=== PATIENT | female | born 1995 | race Caucasian/White ===

== ENCOUNTER → 2017-10-04 | Outpatient (CLI) | payer OTHER ==
--- NOTE | 2017-10-04 16:24 | Diagnostic Imaging Report ---
PROCEDURE: US OB SINGLE FETUS <14 WKS. TECHNIQUE: Multiple real-time grayscale images were obtained over the gravid uterus in various projections. INDICATION: Size and dates. FINDINGS: There is a single living intrauterine . Biometry correlates with a gestational age of 9 weeks 0 days. Heart rate is 179 beats per minute and regular. Both ovaries are normal in appearance. There are no adnexal masses. IMPRESSION: Single living intrauterine with a sonographically estimated gestational age of 9 weeks 0 days and estimated date of confinement of May 09, 2018. Dictated by: Dictated on workstation # [id number]
== END ==
LOC: RAD 13:39
PROVIDERS: ATTEND Family Medicine
DX: Z34.91 Encounter for supervision of normal pregnancy, unspecified, first trimester (principal); Z3A.09 9 weeks gestation of pregnancy
CPT/HCPCS: 76801

== ENCOUNTER → 2017-12-15 | Outpatient (CLI) | payer OTHER, MEDICAID ==
--- NOTE | 2017-12-15 16:33 | Diagnostic Imaging Report ---
EXAM: OB ULTRASOUND COMPLETE. DATE: December 15, 2017. COMPARISON: October 04, 2017. INDICATION: 22-year-old female, survey. FINDINGS: Multiple grayscale sonographic images were obtained of the gravid uterus. Overview: Within the uterus there is a single living gestation in cephalic position. There is positive movement and heart motion. heart rate was identified at 149 beats per minute. The amniotic fluid volume is subjectively normal. The placenta is anterior and without previa. The cervical length is 5.1 cm. growth parameters are summarized in detail below. anatomic survey: There is no ventriculomegaly (the lateral ventricle measures < 8 mm) the cerebellum, cavum septum pellucidum, falx, and cisterna magna are identified. Longitudinal images of the spine appear unremarkable. There is visualization of the stomach, kidneys and urinary bladder. The cardiac apex and stomach are on the same side of midline. There is a normal four-chamber view of the heart. There is a three-vessel cord with an unremarkable insertion into the abdominal wall. 4 extremities are seen. The upper lip is not well demonstrated. The maternal adnexa are not imaged. IMPRESSION: 1. Single living intrauterine . Recommend correlation with earlier ultrasound measurements for estimated age. Estimated weight on this exam is 272 g. 2. Unremarkable anatomic survey. Biometrical measurements are as follows: Biparietal 4.2 cm, age 19 weeks 0 days. Head circumference 16.14 cm, age 19 weeks 0 days. Abdominal circumference 13.59 cm, age 19 weeks 1 days. Femur length 2.96 cm, age 19 weeks 1 days. Sonographic estimate age: 19 weeks 1 days. Sonographic estimated date of delivery: 05/10/18. Estimated Weight: 272 gm (+/- 40 gm). LMP percentile: 33%. heart rate: 149 beats per minute. number: 1 of 1. Dictated by: Dictated on workstation # [id number]
== END ==
LOC: RAD 14:45
PROVIDERS: ATTEND Family Medicine
DX: Z36.89 Encounter for other specified antenatal screening (principal); Z3A.19 19 weeks gestation of pregnancy
CPT/HCPCS: 76805

== ENCOUNTER 2018-05-09 18:33 | Inpatient (IN) | payer OTHER, MEDICAID ==
[~2018-05-09] VITALS: Ht 160 cm; Wt 79.4 kg
[2018-05-09 18:30] VITALS: BP 126/72
[2018-05-09] MEDS ORDERED: D5 LR IV SOLUTION 1,000 ML IV ONE (19:25)
[2018-05-09 19:30] LABS: BASOPHILS % (AUTO) 0 % (0-10); EOSINOPHILS # (AUTO) 0.1 10^3/uL (0.0-0.3); EOSINOPHILS % (AUTO) 1 % (0-10); HEMATOCRIT 34 % (35-52); HEMOGLOBIN 11.5 G/DL (11.5-16.0); LYMPHOCYTES % (AUTO) 14 % (12-44); MEAN CORPUSCULAR HEMOGLOBIN 32 PG (25-34); MEAN CORPUSCULAR HGB CONC 34 G/DL (32-36); MEAN CORPUSCULAR VOLUME 93 FL (80-99); MEAN PLATELET VOLUME 11.7 FL (7.4-10.4); MONOCYTES # (AUTO) 1.3 X 10^3 (0.0-1.0); MONOCYTES % (AUTO) 9 % (0-12); NEUTROPHILS % (AUTO) 77 % (42-75); PLATELET COUNT 297 10^3/uL (130-400); RED BLOOD COUNT 3.65 10^6/uL (4.35-5.85); RED CELL DISTRIBUTION WIDTH 14.9 % (10.0-14.5); WHITE BLOOD COUNT 14.4 10^3/uL (4.3-11.0)
[2018-05-09] MEDS: D5 LR IV SOLUTION 1,000 ML IV SCH (19:30)
[2018-05-09 19:56] LABS: BAND NEUTROPHILS 0 %; BASOPHILS % (MANUAL) 0 %; EOSINOPHILS % (MANUAL) 1 %; LYMPHOCYTES % (MANUAL) 10 %; MONOCYTES % (MANUAL) 8 %; NEUTROPHILS % (MANUAL) 81 %; RBC MORPH NORMAL
[2018-05-09 20:20] VITALS: BP 128/78
--- NOTE | 2018-05-09 20:47 | History & Physical-OB ---
OB - Chief Complaint & HPI Date/Time Date of Admission: Date of Admission: May 09, 2018 at 18:33 Date seen by a Provider: May 09, 2018 Time Seen by a Provider: 20:40 Chief Complaint/History OB-Reason for Admission/Chief: Induction of Labor Hx : 1 Hx Para: 0 Expected Date of Delivery: May 09, 2018 Gestational Age in Weeks: 40 Gestational Age in Days: 0 Indication for : malpresentation (determined once on the floor when induction was to begin.) Admission Nurse Assessment Rev: Yes History of Labs GBS positive Allergies and Home Medications Allergies Coded Allergies: No Known Drug Allergies (Unverified , 12/15/12) Patient Home Medication List Home Medication List Reviewed: Yes OB - History Hx of Present Care: Yes Ultrasounds: Normal mid trimester US Obstetrical Complications: None Medical Complications: None Patient Past Medical History no chronic medical problems Immunizations Tetanus Booster (TDap): Less than 5yrs OB - Admission Exam Physical Exam Vitals: Vital Signs 05/09/18 18:30 Temp 98.8 Pulse 116 Resp 18 B/P (MAP) 126/72 (90) O2 Delivery Room Air HEENT: Moist Membranes Heart: Rhythm Normal Lungs: Clear Abdomen: Gravid Cervical Dilatation: 1cm Effacement: 50% Station: Ballotable Membranes: Intact Heart Rate: 130's Accelerations: Accelerations Present Contractions on Admission: >10 Minutes Apart Intensity: Mild Labs Laboratory Tests Test 05/09/18 19:05 Range/Units White Blood Count 14.4 H 4.3-11.0 10^3/uL Red Blood Count 3.65 L 4.35-5.85 10^6/uL Hemoglobin 11.5 11.5-16.0 G/DL Hematocrit 34 L 35-52 % Mean Corpuscular Volume 93 80-99 FL Mean Corpuscular Hemoglobin 32 25-34 PG Mean Corpuscular Hemoglobin Concent 34 32-36 G/DL Red Cell Distribution Width 14.9 H 10.0-14.5 % Platelet Count 297 130-400 10^3/uL Mean Platelet Volume 11.7 H 7.4-10.4 FL Neutrophils (%) (Auto) 77 H 42-75 % Lymphocytes (%) (Auto) 14 12-44 % Monocytes (%) (Auto) 9 0-12 % Eosinophils (%) (Auto) 1 0-10 % Basophils (%) (Auto) 0 0-10 % Neutrophils # (Auto) 11.0 H 1.8-7.8 X 10^3 Lymphocytes # (Auto) 2.0 1.0-4.0 X 10^3 Monocytes # (Auto) 1.3 H 0.0-1.0 X 10^3 Eosinophils # (Auto) 0.1 0.0-0.3 10^3/uL Basophils # (Auto) 0.0 0.0-0.1 10^3/uL Neutrophils % (Manual) 81 % Lymphocytes % (Manual) 10 % Monocytes % (Manual) 8 % Eosinophils % (Manual) 1 % Basophils % (Manual) 0 % Band Neutrophils 0 % Blood Morphology Comment NORMAL OB - Assessment/Plan/Diagnosis Assessment Assessment: induction of labor (but now breech presentation noted. ) Admission Dx IUP at term 40 weeks. Breech presentation (noted at time of induction) Admission Status: Inpatient Order (span 2 midnights) Reason for Inpatient Admission: Plan is for LTCS primary in the am Plan Plan: Section (and Dr Avila notified at 2039 on ) Other Plan NPO after midnight consent for CS for am DAVID YAO MD May 09, 2018 20:47
[2018-05-10] VITALS (8 sets, daily range): BP systolic 115–136; BP diastolic 65–89
[2018-05-10] MEDS ORDERED: PREN-142 PO (01:18)
[2018-05-10] MEDS: CATHETER FLUSH 10 ML SYR IV SCH ×3 (02:41→23:58)
[2018-05-10] MEDS ORDERED: ceFAZolin 1,000 MG/10 ML (ANCEF) VIAL ONE (05:15)
[2018-05-10] MEDS ORDERED: NS (IVPB) 50 ML ONE (05:15)
[2018-05-10] MEDS ORDERED: METOCLOPRAMIDE INJ 10 MG/2 ML (REGLAN) ONE (05:16)
[2018-05-10] MEDS ORDERED: FAMOTIDINE 20MG/2ML IV (PEPCID) ONE (05:16)
[2018-05-10] MEDS ORDERED: CITRIC ACID/SOB CIT (BICITRA) 30 ML UDC ONE (05:16)
[2018-05-10] MEDS ORDERED: FAMOTIDINE 20MG/2ML IV (PEPCID) IV ONE (06:15)
[2018-05-10] MEDS ORDERED: CITRIC ACID/SOB CIT (BICITRA) 30 ML UDC PO ONE (06:15)
[2018-05-10] MEDS ORDERED: METOCLOPRAMIDE INJ 10 MG/2 ML (REGLAN) IV ONE (06:15)
[2018-05-10] MEDS ORDERED: ceFAZolin INJECTION 1,000 MG in NS (IVPB) 50 ML IV NR (06:15)
[2018-05-10] MEDS: LACTATED RINGERS 1,000 ML IV PRN ×2 (06:24→06:25)
[2018-05-10] MEDS ORDERED: LACTATED RINGERS 1,000 ML IV PRN (06:53)
[2018-05-10] MEDS ORDERED: fentaNYL INJECTION 100 MCG/2 ML AMP ONE (07:00)
[2018-05-10] MEDS ORDERED: OXYTOCIN/NORMAL SALINE 1,000 ML IV ONE (07:00)
[2018-05-10] MEDS ORDERED: OXYTOCIN/NORMAL SALINE 500 ML IV SCH (07:07)
--- NOTE | 2018-05-10 07:07 | Progress Note-Pre Operative ---
Pre-Operative Progress Note H&P Reviewed The H&P was reviewed, patient examined and no changes noted. Date Seen by Provider: May 10, 2018 Time Seen by Provider: 07:00 Date H&P Reviewed: May 10, 2018 Time H&P Reviewed: 07:00 Pre-Operative Diagnosis: Breech presentation KAYODE KENDRICK DO May 10, 2018 7:07 am
--- NOTE | 2018-05-10 07:11 | Discharge Inst-Women's Service ---
Discharge Inst-Women's Serv Depart Medication/Instructions New, Converted or Re-Newed RX: RX on Chart Consults/Follow Up Additional Follow Up: Yes Orders/Referrals Dr. Avila in 7-10 days, Dr. Lewis in 6 weeks Activity Activity: Activity as Tolerated Driving Instructions: No Driving for 1 Week NO SMOKING: NO SMOKING Nothing Inside Vagina: No Douching, No [place], No Tampons Diet Discharge Diet: No Restrictions Symptoms to Report to : Bleeding Excessive, Pain Increased, Fever Over 101 Degrees F, Vaginal Bleeding Increase, Questions/Concerns For Any Problems or Questions: Contact Your Physician Skin/Wound Care Infection Signs and Symptoms: Increased Redness, Foul Odor of Wound, Increased Drainage, Skin Itchy or Has a Rash, Increased Swelling, Temperature Above 101 F Operative Area Clean and Dry: Keep Incision Clean/Dry Stitches/Andreas/Dermabond: Dermabond, Care of Stitches Bathing Instructions: KAYODE Ocasio DO May 10, 2018 7:11 am
[2018-05-10] MEDS ORDERED: ACHD5005 PO (07:13)
[2018-05-10] MEDS ORDERED: IBUP-844 PO (07:13)
[2018-05-10] MEDS ORDERED: DOCU100C37 PO (07:13)
[2018-05-10] MEDS ORDERED: MEASLES,MUMPS,RUBELLA 1 EA INJ SC SCH (07:15)
[2018-05-10] MEDS ORDERED: TETANUS,DIPTH,PERTUSS P/F (BOOSTRIX) 0.5 ML VIAL IM SCH (07:15)
[2018-05-10] MEDS ORDERED: ONDANSETRON 4 MG/2 ML (SDV) Z0FRAN IVP PRN (07:15)
[2018-05-10] MEDS ORDERED: HYDROmorphone 2 MG/ML VIAL (DILAUDID) IV PRN (07:15)
[2018-05-10] MEDS ORDERED: PHENYLEPHRINE 100 MCG/ML 10 ML (ANESTHESIA) SYR ONE (07:18)
[2018-05-10] MEDS ORDERED: BUPIVACAINE 0.5% 30 ML (SENSORCAINE) VIAL ONE (08:01)
[2018-05-10] MEDS ORDERED: LIDOCAINE PF 2% 5 ML (XYLOCAINE) VIAL ONE (08:01)
[2018-05-10] MEDS ORDERED: BUPIVACAINE SPINAL 0.75% (SENSORCAINE) 2 ML AMP ONE (08:02)
[2018-05-10] MEDS: KETOROLAC 30 MG/ML VIAL IVP SCH ×3 (11:31→23:58)
[2018-05-10] MEDS: D5 LR IV SOLUTION 1,000 ML IV SCH (11:33)
--- NOTE | 2018-05-10 12:56 | OPERATIVE REPORT ---
DATE OF SERVICE: PREOPERATIVE DIAGNOSES: 1. A 22-year-old G1, P0 at 40 weeks and 1 day gestation. 2. Breech presentation. POSTOPERATIVE DIAGNOSES: 1. A 22-year-old G1, P0 at 40 weeks and 1 day gestation. 2. Breech presentation. PROCEDURE: Primary low transverse section. SURGEON: Johnnie Kendrick DO CONTRACTS ADVISOR: Dr. Jay Lewis. ANESTHESIA: Spinal. ESTIMATED BLOOD LOSS: 500 mL. URINE OUTPUT: 125 mL clear at the end of procedure. FLUIDS: 1200 mL lactated Ringer's solution. FINDINGS: A live female infant, weighing 7 pounds 7 ounces, Apgars of 8 and 9. Grossly normal appearing uterus, bilateral fallopian tubes and ovaries. INDICATIONS FOR PROCEDURE: This 22-year-old female is a patient admitted by Dr. Lewis yesterday for induction of labor at 40 weeks and found to be in the breech presentation. I was consulted last evening. She had just eaten and therefore she had to be n.p.o. overnight due to the fact that she was not in labor and this was not an emergency. This morning I went and reevaluated and found on ultrasound that the baby continued to be in the breech presentation, which was a isabella breech. I discussed with the patient the risk of vaginal breech delivery and why we recommend for breech presentation. She seemed to understand this and all of her questions were answered pertaining to the indication. I then discussed with her the risks of the procedure including risk of bleeding, infection, damage to surrounding structures including, but not limited to bowel, bladder, ureter, kidneys, postoperative expectations, possible need for repeat surgery or follow up procedures as well as recovery time frame, risk from anesthesia and even and also possible risk for blood transfusion. After everything was discussed with the patient, consent was obtained in the preoperative area and all of her questions were answered with the family present and the patient was taken to the operating room. OPERATIVE REPORT IN DETAIL: Once in the operating room, spinal analgesia was found to be adequate. She was placed in the supine position with a leftward tilt, prepped and draped in normal sterile fashion. A Pfannenstiel skin incision was then made with a knife after anesthesia was tested and timeout was performed. That incision was then taken down to the underlying fascia using Bovie cautery. The fascial incision extended laterally using Bovie cautery. Superior aspect of the fascial incision was then grasped with Nichole clamps, tented up and dissected off the underlying rectus muscle. The inferior aspect of the fascial incision was then grasped with Nichole clamps, tented up and dissected off the underlying rectus muscles. The rectus muscles were then dissected down the midline using Albarran scissors, which expose the peritoneum, which I entered bluntly and extended using blunt extension. The Giovanni ring retractor was then placed in the peritoneal incision, which offered excellent lateral sidewall retraction. I then identified the lower uterine segment found to be thinned out. I make an incision to the vesicouterine peritoneum and bluntly dissected this off the lower uterine segment, creating a bladder flap. I then proceeded until membranes were visualized, which fornix and the uterine incision laterally and superiorly using bandage scissors. Infant is found in the isabella breech presentation and clear fluid was noted at the time of rupture. With gentle fundal pressure, the is delivered via buttocks through the incision where the legs were then delivered to follow. The arms were then delivered after the infant is positioned face down by sweeping the arms across the chest. I then elevate the infant's body and with gentle flexion, I am able to deliver the 's head through the incision. The nares and oropharynx were then bulb suctioned. The cord was doubly clamped and cut and was taken off the operative field by Dr. Lewis for further attendance. Cord blood was collected. Three-vessel cord with intact placenta was delivered spontaneously thereafter. IV Pitocin was initiated to facilitate uterine contraction. Uterine fundus confirmed with bimanual massage. The uterus was then exteriorized and cleared of all endometrial clots and debris. I then closed the uterine incision using 0 Vicryl suture in running locked fashion. Second layer of imbricating 0 Monocryl was placed. Excellent hemostasis was noted after doing this. I then copiously irrigated the pelvis using normal saline. Once again, there was no active bleeding noted from any of my dissection planes. I placed Interceed antiadhesive over my low transverse incision to the vesicouterine peritoneum using 3-0 Vicryl suture in a running fashion. The rectus muscle was reapproximated using 3-0 Vicryl suture in an interrupted fashion. The fascia was reapproximated using 0 Vicryl suture in running fashion. The subcutaneous tissue was reapproximated using 3-0 plain in interrupted subcutaneous stitch and the skin reapproximated using 4-0 Monocryl in a running subcuticular. Dermabond was applied to the incision. Sterile dressing was adhesed with white tape. The patient tolerated the procedure well and sent to recovery area in stable condition. Lap and sponge counts were correct at the end of the procedure. Instrument counts were correct as well. One gram of Ancef given preoperatively for infection prophylaxis. Job ID: [id number] DocumentID: [id number] Dictated Date: 05/10/2018 08:16:12 Fruit Or Nut Farmer Date: 05/10/2018 12:55:32 Dictated By: JOHNNIE KENDRICK DO
[2018-05-10] MEDS ORDERED: CATHETER FLUSH 10 ML SYR IV SCH (14:00)
[2018-05-10] MEDS: DOCUSATE SODIUM 100 MG (COLACE) CAP PO SCH ×2 (20:32→20:36)
[2018-05-10] MEDS: HYDROcodone/APAP 5 MG/325 MG (LORTAB) TAB PO PRN (20:40)
[2018-05-11] MEDS: CATHETER FLUSH 10 ML SYR IV SCH ×2 (00:40→06:22)
[2018-05-11 04:00] VITALS: BP 123/80
[2018-05-11 04:52] LABS: BASOPHILS % (AUTO) 0 % (0-10); EOSINOPHILS # (AUTO) 0.1 10^3/uL (0.0-0.3); EOSINOPHILS % (AUTO) 1 % (0-10); HEMATOCRIT 32 % (35-52); HEMOGLOBIN 10.4 G/DL (11.5-16.0); LYMPHOCYTES # (AUTO) 2.4 X 10^3 (1.0-4.0); LYMPHOCYTES % (AUTO) 16 % (12-44); MEAN CORPUSCULAR HEMOGLOBIN 31 PG (25-34); MEAN CORPUSCULAR HGB CONC 33 G/DL (32-36); MEAN CORPUSCULAR VOLUME 94 FL (80-99); MEAN PLATELET VOLUME 11.3 FL (7.4-10.4); MONOCYTES # (AUTO) 1.4 X 10^3 (0.0-1.0); MONOCYTES % (AUTO) 9 % (0-12); NEUTROPHILS # (AUTO) 11.8 X 10^3 (1.8-7.8); NEUTROPHILS % (AUTO) 75 % (42-75); PLATELET COUNT 274 10^3/uL (130-400); RED BLOOD COUNT 3.35 10^6/uL (4.35-5.85); RED CELL DISTRIBUTION WIDTH 14.9 % (10.0-14.5); WHITE BLOOD COUNT 15.7 10^3/uL (4.3-11.0)
[2018-05-11] MEDS ORDERED: KETOROLAC 30 MG/ML VIAL ONE (05:47)
[2018-05-11] MEDS: KETOROLAC 30 MG/ML VIAL IVP SCH (06:22)
[2018-05-11] MEDS: HYDROcodone/APAP 5 MG/325 MG (LORTAB) TAB PO PRN ×3 (06:22→21:15)
[2018-05-11 08:00] VITALS: BP 123/72
--- NOTE | 2018-05-11 08:03 | Postpartum Progress Note ---
Note Note Day # 1 Subjective: Patient is without complaints. Ambulating, voiding. Tolerating a regular diet without nausea or vomiting. Normal lochia. Pain is well controlled with oral pain medications. Objective: Vital Sign - Last 24 Hours 05/10/18 05/10/18 05/10/18 05/10/18 10:00 12:00 17:57 20:36 Temp 98.9 99.4 98.7 98.6 Pulse 83 110 105 110 Resp 18 18 18 18 B/P (MAP) 115/65 (82) 119/66 (83) 136/89 (105) 132/79 (96) Pulse Ox 100 97 98 98 O2 Delivery Room Air Room Air 05/10/18 05/11/18 23:58 04:00 Temp 98.4 98.7 Pulse 109 103 Resp 18 18 B/P (MAP) 127/73 (91) 123/80 (94) Pulse Ox 97 98 Intake and Output 05/10/18 05/10/18 05/11/18 15:00 23:00 07:00 Intake Total 50 ml 860 ml 1200 ml Output Total 1125 ml 800 ml 2600 ml Balance -1075 ml 60 ml -1400 ml Physical Exam: General - Alert and oriented, no apparent distress Abdomen - Soft, appropriately tender to palpation, non-distended, fundus firm at umbilicus Extremities - no edema, negative Juliano's bilaterally Incision- c/d/i Assessment: POD 1 PLTCS Acute blood loss anemia Plan: Routine care. Encourage breast feeding. Encourage ambulation. Ferrous sulfate supplementation. Plan for discharge tomorrow Vitals - Labs Vital Signs - I&O Vital Signs Date Time Temp Pulse Resp B/P (MAP) Pulse Ox O2 Delivery O2 Flow Rate FiO2 05/11/18 04:00 98.7 103 18 123/80 (94) 98 05/10/18 23:58 98.4 109 18 127/73 (91) 97 05/10/18 20:36 98.6 110 18 132/79 (96) 98 05/10/18 17:57 98.7 105 18 136/89 (105) 98 05/10/18 12:00 99.4 110 18 119/66 (83) 97 Room Air 05/10/18 10:00 98.9 83 18 115/65 (82) 100 Room Air I & O 05/11/18 07:00 Intake Total 2110 ml Output Total 4525 ml Balance -2415 ml Labs Laboratory Tests 05/11/18 04:35: White Blood Count 15.7H, Red Blood Count 3.35L, Hemoglobin 10.4L, Hematocrit 32L , Mean Corpuscular Volume 94, Mean Corpuscular Hemoglobin 31, Mean Corpuscular Hemoglobin Concent 33, Red Cell Distribution Width 14.9H, Platelet Count 274, Mean Platelet Volume 11.3H, Neutrophils (%) (Auto) 75, Lymphocytes (%) (Auto) 16 , Monocytes (%) (Auto) 9, Eosinophils (%) (Auto) 1, Basophils (%) (Auto) 0, Neutrophils # (Auto) 11.8H, Lymphocytes # (Auto) 2.4, Monocytes # (Auto) 1.4H, Eosinophils # (Auto) 0.1, Basophils # (Auto) 0.0 KAYODE KENDRICK DO May 11, 2018 08:03
[2018-05-11] MEDS: DOCUSATE SODIUM 100 MG (COLACE) CAP PO SCH ×3 (08:29→20:44)
[2018-05-11 12:00] VITALS: BP 119/73
[2018-05-11] MEDS: IBUPROFEN 600 MG (MOTRIN) TAB PO SCH ×3 (12:25→23:56)
[2018-05-11 16:00] VITALS: BP 118/85
[2018-05-11 20:30] VITALS: BP 119/81
[2018-05-12 02:00] VITALS: BP 133/85
[2018-05-12] MEDS: HYDROcodone/APAP 5 MG/325 MG (LORTAB) TAB PO PRN ×2 (02:11→13:09)
[2018-05-12] MEDS: IBUPROFEN 600 MG (MOTRIN) TAB PO SCH ×2 (05:40→13:09)
--- NOTE | 2018-05-12 08:37 | Postpartum Progress Note ---
Note Note Day # 2 Subjective: Patient is without complaints. Ambulating, voiding. Tolerating a regular diet without nausea or vomiting. Normal lochia. Pain is well controlled with oral pain medications. Objective: Vital Sign - Last 24 Hours 05/11/18 05/11/18 05/11/18 05/12/18 12:00 16:00 20:30 02:00 Temp 98.0 98.2 98.9 98.8 Pulse 106 110 103 102 Resp 18 18 18 18 B/P (MAP) 119/73 (88) 118/85 (96) 119/81 (94) 133/85 (101) Pulse Ox 96 99 99 100 O2 Delivery Room Air Room Air Room Air Intake and Output 05/11/18 05/11/18 05/12/18 15:00 23:00 07:00 Intake Total 1940 ml 1000 ml Output Total 2800 ml 1100 ml Balance -860 ml -100 ml Physical Exam: General - Alert and oriented, no apparent distress Abdomen - Soft, appropriately tender to palpation, non-distended, fundus firm at umbilicus Extremities - no edema, negative Juliano's bilaterally Incision- c/d/i Assessment: POD 2 PLTCS Acute blood loss anemia Plan: Routine care. Encourage breast feeding. Encourage ambulation. Ferrous sulfate supplementation. Plan for discharge today Vitals - Labs Vital Signs - I&O Vital Signs Date Time Temp Pulse Resp B/P (MAP) Pulse Ox O2 Delivery O2 Flow Rate FiO2 05/12/18 02:00 98.8 102 18 133/85 (101) 100 Room Air 05/11/18 20:30 98.9 103 18 119/81 (94) 99 Room Air 05/11/18 16:00 98.2 110 18 118/85 (96) 99 Room Air 05/11/18 12:00 98.0 106 18 119/73 (88) 96 I & O 05/12/18 07:00 Intake Total 2940 ml Output Total 3900 ml Balance -960 ml KAYODE KENDRICK DO May 12, 2018 8:37 am
[2018-05-12 10:00] VITALS: BP 115/70
[2018-05-12] MEDS: DOCUSATE SODIUM 100 MG (COLACE) CAP PO SCH (10:00)
== END 2018-05-12 14:00 | disposition home or self-care (01) | DRG 788 ==
LOC: LDRP 18:33
PROVIDERS: ADMIT Family Medicine; ATTEND Family Medicine
PROC: 10D00Z1 Extraction of Products of Conception, Low, Open Approach (ICD-10-PCS; principal; 2018-05-10 07:10)
DX: O32.1XX0 Maternal care for breech presentation, not applicable or unspecified (principal); O90.81 Anemia of the puerperium; O99.820 Streptococcus B carrier state complicating pregnancy; Z3A.40 40 weeks gestation of pregnancy; Z37.0 Single live birth; Z23 Encounter for immunization
CPT/HCPCS: 36415; 85007; 85025; 85027; 86850; 86900; 86901; 90471; 90715; 94664